=== PATIENT | male | born 1990 | race Caucasian/White ===

== ENCOUNTER 2018-02-16 01:16 | Emergency (ER) | payer OTHER ==
[2018-02-16 01:32] VITALS: BP 123/74; PULSE 82; TEMP 98.6; BMI 27.4
[2018-02-16] MEDS ORDERED: AMOX TR/POT CLAV 875MG/125MG TABLETS (FP) PO ONE (01:43)
[2018-02-16] MEDS ORDERED: TETANUS AND DIPHTHERIA TOXOID 0.5 ML DISP.SYRIN IM ONE (01:43)
[2018-02-16] MEDS ORDERED: LIDOCAINE HCL 2% JELLY (30 ML/TUBE) TP ONE (01:43)
--- NOTE | 2018-02-16 01:50 | PDOC ---
History of Present Illness - General Chief Complaint: Laceration Stated Complaint: LACERATION Time Seen by Provider: 02/16/18 01:38 History Source: Patient - History of Present Illness Initial Comments: 02/16/18 01:48 27 year old male cat scratched the left ear lobe at home. + 2cm laceration to inner aspect of the posterior helix. last tetanus unknown. Past History - Past Medical History Allergies/Adverse Reactions: Allergies Allergy/AdvReac Type Severity Reaction Status Date / Time No Known Allergies Allergy Verified 02/16/18 01:30 Home Medications: Ambulatory Orders Amoxicillin/Potassium Clav [Augmentin 875-125 Tablet] 1 each PO BID #14 tablet 02/16/18 - Suicide/Smoking/Psychosocial Hx Smoking History: Never smoked Have you smoked in the past 12 months: No Information on smoking cessation initiated: No Hx Alcohol Use: No Drug/Substance Use Hx: No Review of Systems - Review of Systems Able to Perform ROS?: Yes Is the patient limited Romanian proficient: No Integumentary: Yes: Other (laceration) *Physical Exam - Vital Signs Last Vital Signs Temp Pulse Resp BP Pulse Ox 98.6 F 82 20 123/74 99 02/16/18 01:30 02/16/18 01:30 02/16/18 01:30 02/16/18 01:30 02/16/18 01:30 - Physical Exam General Appearance: Yes: Appropriately Dressed HEENT: positive: Other (+ 2cm laceration to inner aspect of the posterior helix. ) Procedures - Laceration/Wound Repair Left Ear Wound Length: to 2.5 cm Wound Explored: clean Anesthesia: 1% Lidocaine Amount of Anesthetic (ccs): 1 Wound Debrided: minimal Wound Repaired With: Sutures Suture Size/Type: 5:0 Number of Sutures: 4 Layer Closure: No Sterile Dressing Applied: Yes (bacitracin applied) Progress: 02/16/18 03:30 p Progress Note - Progress Note Progress Note: A: ear lobe laceration P: see procedure note Augmentin tetanus *DC/Admit/Observation/Transfer Diagnosis at time of Disposition: Laceration of ear lobe Qualifiers: Encounter type: initial encounter Laterality: left Qualified Code(s): S01.312A - Laceration without foreign body of left ear, initial encounter - Discharge Dispostion Disposition: HOME - Prescriptions Prescriptions: Amoxicillin/Potassium Clav [Augmentin 875-125 Tablet] 1 each PO BID #14 tablet - Referrals - Patient Instructions Printed Discharge Instructions: DI for Laceration Repair Additional Instructions: keep wound clean and dry. take augmentin twice daily x 7 days return to the ER in 7- 10 days for suture removal follo wup with your doctor 2-3 days for a wound check if there are any sign of infection Additional Instructions: * Please call your personal physician to report your Emergency Department visit and to report your progress, if any. * If there is no improvement in symptoms in 2 days call your physician. * Return to the Emergency Department for any worsening symptoms. - Post Discharge Activity Forms/Work/School Notes: Back to Work
--- NOTE | 2018-02-16 01:50 | PDOC ---
*Physical Exam - Vital Signs Last Vital Signs Temp Pulse Resp BP Pulse Ox 98.6 F 82 20 123/74 99 02/16/18 01:30 02/16/18 01:30 02/16/18 01:30 02/16/18 01:30 02/16/18 01:30 Medical Decision Making - Medical Decision Making 02/16/18 04:37 27M scratched behind L ear by cat known to him after being provoked clear wound, primary closure start augmentin interval wound check *DC/Admit/Observation/Transfer Diagnosis at time of Disposition: Laceration of ear lobe - Discharge Dispostion Disposition: HOME - Prescriptions Prescriptions: Amoxicillin/Potassium Clav [Augmentin 875-125 Tablet] 1 each PO BID #14 tablet - Referrals - Patient Instructions Printed Discharge Instructions: DI for Laceration Repair Additional Instructions: keep wound clean and dry. take augmentin twice daily x 7 days return to the ER in 7- 10 days for suture removal follo wup with your doctor 2-3 days for a wound check if there are any sign of infection Additional Instructions: * Please call your personal physician to report your Emergency Department visit and to report your progress, if any. * If there is no improvement in symptoms in 2 days call your physician. * Return to the Emergency Department for any worsening symptoms. - Post Discharge Activity Forms/Work/School Notes: Back to Work
[2018-02-16] MEDS ORDERED: LIDOCAINE HCL 2% JELLY (5 ML/TUBE) ONE (02:06)
[2018-02-16] MEDS ORDERED: AMOX TR/POT CLAV 875MG/125MG TABLETS (FP) ONE (02:06)
== END 2018-02-16 03:43 | disposition home or self-care (01) ==
LOC: JER 01:16
PROC: 0HQ3XZZ Repair Left Ear Skin, External Approach (ICD-10-PCS; principal; 2018-02-16)
PROC: 3E0234Z Introduction of Serum, Toxoid and Vaccine into Muscle, Percutaneous Approach (ICD-10-PCS; 2018-02-16)
DX: S01.312A Laceration without foreign body of left ear, initial encounter (principal); W55.03XA Scratched by cat, initial encounter; Y93.89 Activity, other specified; Y92.89 Other specified places as the place of occurrence of the external cause; Y99.8 Other external cause status
CPT/HCPCS: 99283-25